=== PATIENT | male | born 1965 | race Caucasian/White ===

== ENCOUNTER → 2020-11-21 | Outpatient (CLI) | payer SELFPAY ==
[~2020-11-21] MED LIST: ASPIRIN E.C. 8181 MG PO; ATIVAN 0.50.5 MG/TAB PO; CALCIUM500 MG PO; CLARITIN 1010 MG/TAB PO; COLACE50 MG PO; DESYREL 100MG100 MG PO; LEVAQUIN 5500 MG/TA1 PO; PRAVACHOL 40MG40 MG PO; PRILOSEC 20MG20 MG PO; SEROQUEL300 MG PO; ULTRAM 50MG TAB50 MG PO; UNABLE; VITAMIN D1000 IU PO; WELLBUTRIN SR200 MG PO; ZOCOR 20MG20 MG PO; [UNRECOGNIZED DRUG - OTHER]; [UNRECOGNIZED DRUG - REMARK]
== END ==
LOC: COL.VAS 12:00
DX: M79.661 Pain in right lower leg (principal)

== ENCOUNTER → 2022-11-24 | Outpatient (CLI) | payer OTHER, BC | LOC: MC.RAD 13:44 | DX: N62 Hypertrophy of breast (principal) ==